=== PATIENT | female | born 1960 | race Caucasian/White ===

== ENCOUNTER 2021-12-23 21:53 | Emergency (ER) | payer MEDICAID ==
[~2021-12-23] VITALS: Ht 157.5 cm; Wt 70.5 kg
[2021-12-23 21:56] VITALS: BP 157/90
[2021-12-23] MEDS ORDERED: CRAN1CAP5 PO (22:01)
[2021-12-23 22:21] LABS: APPEARANCE,URINE CLEAR (CLEAR); BILIRUBIN,URINE NEGATIVE (NEGATIVE); GLUCOSE, URINE (UA) NEGATIVE (NEGATIVE); KETONES,URINE NEGATIVE (NEGATIVE); LEUKOCYTE ESTERASE ,URINE LARGE (NEGATIVE); NITRATE,URINE NEGATIVE (NEGATIVE); OCCULT BLOOD,URINE NEGATIVE (NEGATIVE); PH,URINE 6.5 (5.0-8.0); PROTEIN,URINE NEGATIVE (NEGATIVE); SPECIFIC GRAVITIY, URINE 1.002 (1.003-1.030); UROBILINOGEN,URINE <=1.0 mg/dL (<=1.0)
[2021-12-23] MEDS ORDERED: KETOROLAC TROMETHAMINE 30 MG/ML VIAL IM ONE (22:30)
[2021-12-23 22:41] LABS: BACTERIA,URINE Moderate /HPF (None Seen); RBC,URINE 0-2 /HPF (0-2); SQUAMOUS EPITHELIAL CELL,UR Few /LPF (None Seen); WBC,URINE 51-100 /HPF (0-5)
[2021-12-23] MEDS ORDERED: CEPH-558 PO (22:56)
[2021-12-23] MEDS ORDERED: PHEN-846 PO (22:56)
== END 2021-12-23 23:05 | disposition home or self-care (01) ==
LOC: EMS 21:57
DX: N39.0 Urinary tract infection, site not specified (principal); K80.80 Other cholelithiasis without obstruction; Z90.49 Acquired absence of other specified parts of digestive tract; Z98.51 Tubal ligation status
CPT/HCPCS: 99283; 81001; 87086; 87186; 96372; J1885; 99284

== ENCOUNTER 2022-02-21 09:05 | Emergency (ER) | payer MEDICAID ==
[~2022-02-21] VITALS: Ht 157.5 cm; Wt 72.7 kg
[~2022-02-21 09:05] MED LIST: CEPH-558 PO; CRAN1CAP5 PO; PHEN-846 PO
[2022-02-21 09:26] LABS: COVID AG,FIA SOURCE NASAL SWAB
[2022-02-21 10:42] VITALS: BP 122/68
== END 2022-02-21 10:44 | disposition home or self-care (01) ==
LOC: EMS 09:09
DX: Z20.822 Contact with and (suspected) exposure to COVID-19 (principal); Z79.899 Other long term (current) drug therapy; F17.210 Nicotine dependence, cigarettes, uncomplicated
CPT/HCPCS: 99283

== ENCOUNTER 2022-02-22 06:27 | Day surgery (SDC) | payer MEDICAID ==
[~2022-02-22] VITALS: Ht 157.5 cm; Wt 72.7 kg
[2022-02-22] MEDS ORDERED: PROPOFOL 1% 20 ML VIAL IVP ONE (06:28)
[2022-02-22] MEDS ORDERED: LIDOCAINE/PF 2% 5 ML VIAL IM ONE (06:28)
[2022-02-22] MEDS ORDERED: SODIUM CHLORIDE 0.9% 1,000 ML ONE (06:50)
[2022-02-22] MEDS ORDERED: SODIUM CHLORIDE 0.9% 1,000 ML IV ONE (07:30)
[2022-02-22] MEDS ORDERED: OXYGEN THERAPY IH SCH (20:00)
== END 2022-02-22 10:35 | disposition home or self-care (01) ==
LOC: SURGERY 06:27
PROVIDERS: ATTEND Specialist
DX: K63.5 Polyp of colon (principal); K57.30 Diverticulosis of large intestine without perforation or abscess without bleeding; K64.0 First degree hemorrhoids; Z80.0 Family history of malignant neoplasm of digestive organs; Z90.49 Acquired absence of other specified parts of digestive tract; Z98.51 Tubal ligation status; Z98.890 Other specified postprocedural states; Z79.899 Other long term (current) drug therapy
CPT/HCPCS: 45380; C1769; J2704; J3490; J7030

== ENCOUNTER 2022-04-19 06:18 | Day surgery (SDC) | payer MEDICAID, OTHER ==
[2022-04-18 11:58] LABS: COVID AG,FIA SOURCE NASAL SWAB
[~2022-04-19] VITALS: Ht 157.5 cm; Wt 72.7 kg
[2022-04-19] MEDS ORDERED: PROPOFOL 1% 20 ML VIAL IVP ONE (06:19)
[2022-04-19] MEDS ORDERED: LIDOCAINE/PF 2% 5 ML VIAL CAUDAL ONE (06:19)
[2022-04-19] MEDS ORDERED: SODIUM CHLORIDE 0.9% 1,000 ML ONE ×2 (06:26→06:34)
[2022-04-19] MEDS ORDERED: SODIUM CHLORIDE 0.9% 1,000 ML IV ONE (06:30)
[2022-04-19] MEDS ORDERED: OXYGEN THERAPY IH SCH (08:45)
== END 2022-04-19 10:10 | disposition home or self-care (01) ==
LOC: SURGERY 06:18
PROVIDERS: ATTEND Specialist
DX: K29.50 Unspecified chronic gastritis without bleeding (principal); K25.9 Gastric ulcer, unspecified as acute or chronic, without hemorrhage or perforation; Z20.822 Contact with and (suspected) exposure to COVID-19; F17.210 Nicotine dependence, cigarettes, uncomplicated; Z90.49 Acquired absence of other specified parts of digestive tract; Z98.51 Tubal ligation status; Z98.890 Other specified postprocedural states; Z79.899 Other long term (current) drug therapy
CPT/HCPCS: 87426; 43239; 88342; 88305; 88312; C9803; C1769; J2704; J3490; J7030